=== PATIENT | female | born 1980 | race Caucasian/White ===

== ENCOUNTER 2021-08-31 00:09 | Emergency (ER) | payer OTHER ==
[2021-08-31 01:43] LABS: HEMOGLOBIN 14.2 gm/dl (12.3-15.3); RED BLOOD COUNT 4.36 M/UL (4.00-5.10)
[2021-08-31 02:15] LABS: BUN/CREATININE RATIO 14 (0-10)
[2021-08-31] MEDS ORDERED: PREDNISONE20 MG PO (05:52)
== END 2021-08-31 06:13 | disposition home or self-care (01) ==
LOC: ER1 00:09
PROVIDERS: Physician Assistant
DX: M25.561 Pain in right knee (principal); F17.210 Nicotine dependence, cigarettes, uncomplicated
CPT/HCPCS: 73564; 80053; 83605; 84550; 85025; 85652; 86140; 96374; 99283; J1885